=== PATIENT | female | born 1985 | race Caucasian/White ===

== ENCOUNTER 2016-07-16 11:58 | Inpatient (IN) | payer MEDICAID ==
[~2016-07-16] VITALS: Ht 160 cm; Wt 59.9 kg
[~2016-07-16 11:58] MED LIST: AMOXICILLIN500 MG PO; ATARAX,VISTARIL50 MG PO; BENTYL10 MG PO; CARBIDOPA/LEVOD1 TA1 PO; CYCLOBENZAPRINE5 MG PO; ELIMITE 5%60 GM PO; HYDROCODONE BIT1 T11 PO; KEFLEX500 MG PO; MEDROL DOSEPAK4 MG PO; MOTRIN800 MG PO; NAPROSYN500 MG PO; NKHM; NORCO 325 MG-51 TAB PO; OMEPRAZOLE40 MG PO; Orphenadrine C100 MG PO; PEN-V500 MG PO; PEN-VEE K500 MG PO; PERIDEX 480 ML480 ML PO; SELSUN BLUE325 ML TP; SUBOXONE 8 MG-1 EACH SL; ULTRAM50 MG PO; VIBRA-TAB100 MG PO; VOLTAREN50 M1 PO; ZITHROMAX250 MG PO; ZOFRAN 4 MG ED2 TAB PO; ZOFRAN ODT4 MG SL
[2016-07-16 12:13] VITALS: BP 126/55
[2016-07-16 12:53] LABS: BASO % 0.5 % (0.0-1.0); EOS # 0.1 10*3/uL (0.0-0.4); EOS % 3.6 % (1.0-4.0); HEMATOCRIT 42.7 % (37.0-47.0); HEMOGLOBIN 14.2 g/dl (12.0-16.0); LYMPH # 1.7 10*3/uL (1.3-4.4); LYMPH % 44.2 % (27.0-41.0); MEAN CELL VOLUME 89.3 fl (81.0-99.0); MEAN CORPUSCULAR HGB 29.7 pg (27.0-31.0); MEAN CORPUSCULAR HGB CONC 33.3 g/dl (33.0-37.0); MEAN PLATELET VOLUME 10.1 fl (9.6-12.3); MONO # 0.3 10*3/uL (0.1-1.0); MONO % 7.2 % (3.0-9.0); NEUT # 1.7 10*3/uL (2.3-7.9); NEUT % 44.2 % (47.0-73.0); PLATELET COUNT AUTOMATED 214 10*3/uL (130-400); RED BLOOD COUNT 4.78 10*6/uL (4.10-5.10); RED CELL DISTRI WIDTH 11.7 % (0-14.5); WHITE BLOOD COUNT 3.9 10*3/uL (4.8-10.8)
[2016-07-16 12:54] LABS: BILIRUBIN NEGATIVE (NEGATIVE); BLOOD 2+ (NEGATIVE); CLARITY SL CLOUDY (CLEAR); COLOR YELLOW (YELLOW); GLUCOSE NEGATIVE (NEGATIVE); KETONE NEGATIVE (NEGATIVE); LEUKO ESTERASE 1+ (NEGATIVE); NITRITE POSITIVE (NEGATIVE); PH 5.5 (5.0-9.0); PROTEIN NEGATIVE (NEGATIVE); SPECIFIC GRAVITY 1.025 (1.005-1.030); UROBILINOGEN 0.2 E.U./dl (0.2-1.0)
[2016-07-16 13:05] VITALS: BP 118/70
[2016-07-16 13:05] LABS: BUN 8 mg/dl (7-24); CARBON DIOXIDE 27 mmol/L (21-32); CHLORIDE 103 mmol/L (98-107); EST GLOM FILT AFRICAN AMERICAN > 60 ml/min; GLUCOSE 70 mg/dL (65-99); POTASSIUM 4.1 mmol/L (3.5-5.1); SODIUM 137 mmol/L (136-145)
[2016-07-16 13:06] LABS: URINE AMPHETAMINES < 1000 (1000ng/ml); URINE BARBITURATES < 200 (200ng/ml); URINE COCAINE < 300 (300ng/ml)
[2016-07-16 13:09] LABS: BACTERIA 4+; EPITHELIAL CELLS 15-20; URINE REFLEX COMMENT YES (NO); WBC 51-100 wbc/hpf (0-5)
[2016-07-16 14:14] VITALS: BP 107/52
[2016-07-16 14:40] VITALS: BP 105/53
[2016-07-16 16:00] VITALS: BP 105/61
[2016-07-16 20:00] VITALS: BP 115/44
[2016-07-17] VITALS: BP 101/49; BP 106/54
[2016-07-17 08:00] VITALS: BP 110/50
[2016-07-17 12:00] VITALS: BP 106/45
[2016-07-17 16:00] VITALS: BP 105/68
[2016-07-17 20:00] VITALS: BP 107/48
[2016-07-18] VITALS: BP 116/58
[2016-07-18 08:00] VITALS: BP 114/50
[2016-07-18 12:00] VITALS: BP 106/63
[2016-07-18 16:00] VITALS: BP 99/45
== END 2016-07-18 17:15 | disposition left against medical advice (07) | DRG 894 ==
LOC: ED 11:58 → EDHOLD 14:49 → 5E 14:49
PROVIDERS: Emergency Medicine
DX: F11.23 Opioid dependence with withdrawal (principal); N39.0 Urinary tract infection, site not specified; D72.819 Decreased white blood cell count, unspecified; B19.20 Unspecified viral hepatitis C without hepatic coma; F17.210 Nicotine dependence, cigarettes, uncomplicated; Z82.49 Family history of ischemic heart disease and other diseases of the circulatory system

== ENCOUNTER 2017-02-06 12:57 | Emergency (ER) | payer OTHER ==
[~2017-02-06] VITALS: Wt 55.3 kg
[2017-02-06] MEDS ORDERED: BUPRENORPHINE HY8 MG SL (13:02)
[2017-02-06 13:38] LABS: BILIRUBIN NEGATIVE (NEGATIVE); BLOOD NEGATIVE (NEGATIVE); CLARITY SL CLOUDY (CLEAR); COLOR YELLOW (YELLOW); GLUCOSE NEGATIVE (NEGATIVE); KETONE TRACE (NEGATIVE); LEUKO ESTERASE NEGATIVE (NEGATIVE); NITRITE NEGATIVE (NEGATIVE); PROTEIN NEGATIVE (NEGATIVE); SPECIFIC GRAVITY >= 1.030 (1.005-1.030)
[2017-02-06 13:46] LABS: MUCOUS TRACE; URINE REFLEX COMMENT NO (NO)
[2017-02-06 14:37] LABS: BASO % 0.2 % (0.0-1.0); EOS # 0.1 10*3/uL (0.0-0.4); EOS % 1.4 % (1.0-4.0); HEMOGLOBIN 12.3 g/dl (12.0-16.0); LYMPH # 2.4 10*3/uL (1.3-4.4); LYMPH % 26.2 % (27.0-41.0); MEAN CELL VOLUME 89.2 fl (81.0-99.0); MEAN CORPUSCULAR HGB 28.9 pg (27.0-31.0); MEAN CORPUSCULAR HGB CONC 32.4 g/dl (33.0-37.0); MEAN PLATELET VOLUME 10.3 fl (9.6-12.3); MONO # 0.5 10*3/uL (0.1-1.0); NEUT % 65.8 % (47.0-73.0); PLATELET COUNT AUTOMATED 214 10*3/uL (130-400); RED BLOOD COUNT 4.26 10*6/uL (4.10-5.10); RED CELL DISTRI WIDTH 12.9 % (0-14.5); WHITE BLOOD COUNT 9.1 10*3/uL (4.8-10.8)
[2017-02-06 14:55] LABS: ALBUMIN 3.8 gm/dl (3.1-4.5); BILIRUBIN, TOTAL 0.8 mg/dl (0.2-1.0); BUN 14 mg/dl (7-24); C-REACTIVE PROTEIN 1.55 MG/DL (0-0.3); CARBON DIOXIDE 26 mmol/L (21-32); CHLORIDE 104 mmol/L (98-107); EST GLOM FILT AFRICAN AMERICAN > 60 ml/min; GLUCOSE 65 mg/dL (65-99); MAGNESIUM 1.9 mg/dL (1.5-2.1); POTASSIUM 3.9 mmol/L (3.5-5.1); SGOT/AST 67 IU/L (3-35); SGPT/ALT 107 U/L (12-78); SODIUM 137 mmol/L (136-145); TOTAL PROTEIN 8.3 gm/dL (6.4-8.2)
[2017-02-06 14:56] LABS: ALKALINE PHOSPHATASE 124 U/L (45-117)
[2017-02-06] MEDS ORDERED: IBUPROFEN600 MG PO (18:46)
[2017-02-06] MEDS ORDERED: HYDROCODONE BIT1 T11 PO (18:46)
== END 2017-02-06 18:56 | disposition home or self-care (01) ==
LOC: ED 12:57
PROVIDERS: Emergency Medicine
DX: N83.292 Other ovarian cyst, left side (principal); F17.200 Nicotine dependence, unspecified, uncomplicated; F11.10 Opioid abuse, uncomplicated

== ENCOUNTER 2017-03-16 14:32 | Emergency (ER) | payer OTHER ==
[~2017-03-16] VITALS: Wt 56.7 kg
[~2017-03-16 14:32] MED LIST changes: +BUPRENORPHINE HY8 MG SL; +IBUPROFEN600 MG PO
[2017-03-16 15:18] LABS: BASO % 0.3 % (0.0-1.0); EOS % 0.5 % (1.0-4.0); HEMOGLOBIN 13.8 g/dl (12.0-16.0); LYMPH # 2.2 10*3/uL (1.3-4.4); LYMPH % 30.3 % (27.0-41.0); MEAN CORPUSCULAR HGB 29.6 pg (27.0-31.0); MEAN CORPUSCULAR HGB CONC 33.7 g/dl (33.0-37.0); MEAN PLATELET VOLUME 9.8 fl (9.6-12.3); MONO # 0.3 10*3/uL (0.1-1.0); MONO % 3.8 % (3.0-9.0); NEUT # 4.8 10*3/uL (2.3-7.9); NEUT % 64.7 % (47.0-73.0); PLATELET COUNT AUTOMATED 263 10*3/uL (130-400); RED BLOOD COUNT 4.66 10*6/uL (4.10-5.10); RED CELL DISTRI WIDTH 13.1 % (0-14.5); WHITE BLOOD COUNT 7.4 10*3/uL (4.8-10.8)
[2017-03-16 15:33] LABS: ALBUMIN 4.1 gm/dl (3.1-4.5); ALKALINE PHOSPHATASE 125 U/L (45-117); BUN 12 mg/dl (7-24); CHLORIDE 105 mmol/L (98-107); CREATININE 0.93 mg/dL (0.55-1.02); POTASSIUM 3.7 mmol/L (3.5-5.1); SGOT/AST 85 IU/L (3-35); SGPT/ALT 137 U/L (12-78); SODIUM 139 mmol/L (136-145); TOTAL PROTEIN 9.5 gm/dL (6.4-8.2)
[2017-03-16 15:40] LABS: BETA-HCG, QUANT < 1.0 mIU/mL (1-3)
[2017-03-16 15:47] LABS: BILIRUBIN 2+ (NEGATIVE); BLOOD 3+ (NEGATIVE); CLARITY SL CLOUDY (CLEAR); COLOR YELLOW (YELLOW); GLUCOSE NEGATIVE (NEGATIVE); KETONE TRACE (NEGATIVE); LEUKO ESTERASE TRACE (NEGATIVE); NITRITE NEGATIVE (NEGATIVE); PH 5.5 (5.0-9.0); SPECIFIC GRAVITY >= 1.030 (1.005-1.030)
[2017-03-16 15:54] LABS: BACTERIA 1+; MUCOUS 1+; RBC 0-2 rbc/hpf (0-2)
== END 2017-03-16 16:21 | disposition home or self-care (01) ==
LOC: ED 14:32
PROVIDERS: Nurse Practitioner Family
DX: N93.8 Other specified abnormal uterine and vaginal bleeding (principal); F17.200 Nicotine dependence, unspecified, uncomplicated; Z88.8 Allergy status to other drugs, medicaments and biological substances

== ENCOUNTER 2018-04-01 15:39 | Emergency (ER) | payer MEDICAID ==
[~2018-04-01] VITALS: Ht 160 cm; Wt 56.7 kg
[2018-04-01] MEDS ORDERED: AMOXICILLIN500 M3 PO (17:27)
== END 2018-04-01 17:32 | disposition home or self-care (01) ==
LOC: ED 15:39
DX: J02.9 Acute pharyngitis, unspecified (principal); R50.9 Fever, unspecified; F17.200 Nicotine dependence, unspecified, uncomplicated; Z88.8 Allergy status to other drugs, medicaments and biological substances

== ENCOUNTER 2018-07-26 08:38 | Inpatient (IN) | payer OTHER ==
[~2018-07-26] VITALS: Ht 160 cm; Wt 58.3 kg
[~2018-07-26 08:38] MED LIST changes: +AMOXICILLIN500 M3 PO
[2018-07-26 09:25] VITALS: BP 101/64
--- NOTE | 2018-07-26 09:25 | NUR ---
Time: 924 A 33 year old FEMALE admitted to under services of RIVER AYALA DO, Pt. arrived via ambulatory from [place]. Chief complaint: OPIATE WITHDRAWAL. MAURY VIDES
--- NOTE | 2018-07-26 09:30 | NUR ---
PATIENT MEETS [facility], CINA=[id number]. REFERRAL OPTIONS WERE DISCUSSED WITH THE PATIENT. THE PATIENT IS CURRENTLY INTERESTED IN FOLLOWING UP WITH A FACILITY THAT OFFERS [facility]. [facility] WILL SCHEDULE THE PATIENT'S INITIAL APPOINTMENT. WON TOLBERT MS LEAD BUSINESS ANALYST
[2018-07-26 11:04] LABS: BILIRUBIN NEGATIVE (NEGATIVE); BLOOD TRACE-INTACT (NEGATIVE); CLARITY SL CLOUDY (CLEAR); COLOR YELLOW (YELLOW); GLUCOSE NEGATIVE (NEGATIVE); KETONE NEGATIVE (NEGATIVE); LEUKO ESTERASE NEGATIVE (NEGATIVE); NITRITE NEGATIVE (NEGATIVE); SPECIFIC GRAVITY 1.025 (1.005-1.030)
[2018-07-26 11:10] LABS: BACTERIA TRACE
[2018-07-26 11:12] LABS: URINE AMPHETAMINES < 1000 (1000ng/ml); URINE BARBITURATES < 200 (200ng/ml); URINE BENZODIAZEPINES < 200 (200ng/ml); URINE CANNABINOIDS (THC) < 50 (50ng/ml); URINE COCAINE < 300 (300ng/ml); URINE METHADONE < 300 (300ng/ml); URINE OPIATES > 300 (300ng/ml)
[2018-07-26 11:15] LABS: BASO % 0.5 % (0.0-1.0); EOS # 0.2 10*3/uL (0.0-0.4); EOS % 2.4 % (1.0-4.0); HEMATOCRIT 42.3 % (37.0-47.0); LYMPH # 3.3 10*3/uL (1.3-4.4); LYMPH % 43.9 % (27.0-41.0); MEAN CELL VOLUME 86.5 fl (81.0-99.0); MEAN CORPUSCULAR HGB 28.6 pg (27.0-31.0); MEAN CORPUSCULAR HGB CONC 33.1 g/dl (33.0-37.0); MEAN PLATELET VOLUME 9.5 fl (9.6-12.3); MONO # 0.5 10*3/uL (0.1-1.0); MONO % 6.7 % (3.0-9.0); NEUT # 3.5 10*3/uL (2.3-7.9); NEUT % 46.2 % (47.0-73.0); PLATELET COUNT AUTOMATED 225 10*3/uL (130-400); RED BLOOD COUNT 4.89 10*6/uL (4.10-5.10); RED CELL DISTRI WIDTH 12.1 % (0-14.5); WHITE BLOOD COUNT 7.5 10*3/uL (4.8-10.8)
[2018-07-26 11:17] LABS: URINE PHENCYCLIDINE < 25 (25ng/ml)
[2018-07-26 11:34] LABS: ALBUMIN 3.7 gm/dl (3.1-4.5); ALKALINE PHOSPHATASE 148 U/L (45-117); BUN 14 mg/dl (7-24); CHLORIDE 104 mmol/L (98-107); CREATININE 0.92 mg/dL (0.55-1.02); POTASSIUM 4.2 mmol/L (3.5-5.1); SGOT/AST 57 IU/L (3-35); SGPT/ALT 96 U/L (12-78); SODIUM 137 mmol/L (136-145); TOTAL PROTEIN 9.4 gm/dL (6.4-8.2)
[2018-07-26 11:37] LABS: BETA-HCG, QUANT < 1.0 mIU/mL (1-3); ETHYL ALCOHOL < 3.0 mg/dl (<3)
[2018-07-26 12:00] VITALS: BP 101/50
[2018-07-26 16:00] VITALS: BP 101/50
--- NOTE | 2018-07-26 18:37 | NUR ---
PATIENT DENIES ANY NEEDS AT THIS TIME. PATIENT STATES SHE FEELS OKAY AT THIS TIME.
--- NOTE | 2018-07-26 19:45 | NUR ---
PT RESTING QUIETLY IN BED W/EYES CLOSED DURING BEDSIDE SHIFT REPORT. NO C/O VOICED AT PRESENT TIME. CALL LIGHT IN REACH.
[2018-07-26 20:00] VITALS: BP 106/45
--- NOTE | 2018-07-26 20:42 | NUR ---
PT C/O NAUSEA. MEDICATED W/PHENERGAN 12.5MG PO. NO OTHER C/O VOICED AT PRESENT. CALL LIGHT IN REACH.
--- NOTE | 2018-07-26 21:00 | NUR ---
PT RESTING QUIETLY IN BED. NO FURTHER C/O NAUSEA. CALL LIGHT IN REACH.
[2018-07-27] VITALS: BP 109/46
--- NOTE | 2018-07-27 01:26 | NUR ---
Patient sleeping. Respirations relaxed and easy. Siderails up . [place] on. PANCOH MORALES
--- NOTE | 2018-07-27 06:18 | NUR ---
PT C/O STOMACH CRAMPING, RLS, AND GENERAL DISCOMFORT. MEDICATED W/BENTYL, REQUIP AND ES TYLENOL. WILL MONITOR FOR EFFECTIVNESS. CALL LIGHT IN REACH.
--- NOTE | 2018-07-27 06:41 | NUR ---
24 HR chart check completed.
[2018-07-27 06:55] LABS: ALBUMIN 3.8 gm/dl (3.1-4.5); ALKALINE PHOSPHATASE 165 U/L (45-117); BUN 16 mg/dl (7-24); CHLORIDE 104 mmol/L (98-107); CREATININE 0.91 mg/dL (0.55-1.02); POTASSIUM 4.3 mmol/L (3.5-5.1); SGOT/AST 56 IU/L (3-35); SGPT/ALT 99 U/L (12-78); SODIUM 135 mmol/L (136-145); TOTAL PROTEIN 10.2 gm/dL (6.4-8.2)
[2018-07-27 08:00] VITALS: BP 112/60
--- NOTE | 2018-07-27 08:20 | NUR ---
24 HR CHART CHECK COMPLETE
[2018-07-27 16:00] VITALS: BP 106/51
--- NOTE | 2018-07-27 20:50 | NUR ---
TOOK SUBUTEX WITHOUT DIFFICULTY. VOICES NO C/O AT THIS TIME. REFUSING ANY PRN MEDICATIONS. CALL LIGHT WITHIN REACH.
[2018-07-28] VITALS: BP 110/45
--- NOTE | 2018-07-28 02:00 | NUR ---
AROUSES EASILY UPON ENTERING THE ROOM. PT. REFUSES ANY PRN MEDICATIONS. CALL LIGHT WITHIN REACH.
[2018-07-28 06:29] LABS: BASO % 0.2 % (0.0-1.0); EOS % 0.2 % (1.0-4.0); HEMATOCRIT 44.7 % (37.0-47.0); HEMOGLOBIN 14.8 g/dl (12.0-16.0); LYMPH # 3.3 10*3/uL (1.3-4.4); MEAN CELL VOLUME 86.1 fl (81.0-99.0); MEAN CORPUSCULAR HGB 28.5 pg (27.0-31.0); MEAN CORPUSCULAR HGB CONC 33.1 g/dl (33.0-37.0); MEAN PLATELET VOLUME 10.1 fl (9.6-12.3); MONO # 0.4 10*3/uL (0.1-1.0); MONO % 3.5 % (3.0-9.0); NEUT # 8.5 10*3/uL (2.3-7.9); NEUT % 68.7 % (47.0-73.0); PLATELET COUNT AUTOMATED 277 10*3/uL (130-400); RED BLOOD COUNT 5.19 10*6/uL (4.10-5.10); RED CELL DISTRI WIDTH 12.3 % (0-14.5); WHITE BLOOD COUNT 12.4 10*3/uL (4.8-10.8)
--- NOTE | 2018-07-28 07:45 | NUR ---
PT ASLEEP IN BED AND HAD VOICED ON THE PRIOR SHIFT THAT SHE DOES NOT WISH TO HAVE BEDISDE REPORT TAKE PLACE IN HER ROOM. REPORT RECIEVED FROM JESSI RUSSO. CALL LIGHT WITHIN REACH, WILL CONTINUE TO MONITOR.
--- NOTE | 2018-07-28 07:58 | NUR ---
24 HR CHART CHECK
[2018-07-28 08:00] VITALS: BP 112/60
[2018-07-28 08:14] LABS: HEPATITIS B SURFACE AG Negative (Negative)
[2018-07-28 08:46] LABS: HEPATITIS C VIRUS ANTIBODY >11.0 s/co (0.0-0.9)
--- NOTE | 2018-07-28 12:08 | NUR ---
PATIENT'S DISCHARGE PLAN HAS NOT CHANGED. PATIENT IS STILL GOING TO FOLLOW UP WITH [facility] FOR HER AFTERCARE. NARCISA ROBERTSON B.A. SEISMOGRAPH HELPER
[2018-07-28 16:00] VITALS: BP 112/56
[2018-07-29] VITALS: BP 113/56
--- NOTE | 2018-07-29 04:12 | NUR ---
LAST DOSE OF SCHEDULED SUBUTEX NOT GIVEN. PATIENT WAS FOUND TO HAVE LEFT AGAINST MEDICAL ADVICE. MEDICATION DISCARDED IN THE PROPER RECEPTICAL. NURSING FILLER BLOCK INSERTER REMOVER AND HOSPITALIST NOTIFIED.
--- NOTE | 2018-07-29 04:26 | NUR ---
ATTEMPTED TO LOCATE THE PATIENT ON THE FLOOR. SECURITY NOTIFIED AND WAS UNABLE TO LOCATE THE PATIENT. ITEMS REMAINING IN THE ROOM WERE COLLECTED AND GIVEN TO THE NURSING LITERACY COACH TO BE PLACED IN A LOCK BOX AT THIS TIME.
--- NOTE | 2018-07-29 04:28 | NUR ---
Patient signed out AMA. ATTEMPT TO CONTACT PATIENT WAS MADE Physician JULIAN and microfilm duplicating unit supervisor SUZY CARUSO notified. SULEMA MICHELLE
--- NOTE | 2018-07-29 05:26 | NUR ---
VOICEMAIL LEFT WITH [facility] THAT PATIENT LEFT AMA.
== END 2018-07-29 05:52 | disposition left against medical advice (07) | DRG 894 ==
LOC: 5E 08:38
PROVIDERS: ADMIT Internal Medicine
DX: F11.23 Opioid dependence with withdrawal (principal); R31.29 Other microscopic hematuria; G25.81 Restless legs syndrome; F41.9 Anxiety disorder, unspecified; R74.0 Nonspecific elevation of levels of transaminase and lactic acid dehydrogenase [LDH]; Z53.21 Procedure and treatment not carried out due to patient leaving prior to being seen by health care provider; B19.20 Unspecified viral hepatitis C without hepatic coma; Z72.0 Tobacco use; Z71.6 Tobacco abuse counseling; Z87.440 Personal history of urinary (tract) infections; Z88.8 Allergy status to other drugs, medicaments and biological substances; Z82.49 Family history of ischemic heart disease and other diseases of the circulatory system